=== PATIENT | female | born 1945 | race African-American/Black ===

== ENCOUNTER → 2017-03-23 | Outpatient (CLI) | payer OTHER ==
[~2017-03-23] MED LIST: DIAZ2TAB PO; HYDR-971 PO; PRED50TA PO; flexeril PO
--- NOTE | 2017-03-24 07:07 | RAD ---
Right lower extremity venous ultrasound, 03/23/2017 : History: Right thigh pain Duplex evaluation including grayscale, color flow and spectral Doppler analysis was performed. The femoral and popliteal veins show no filling defects to suggest DVT. The visualized deep veins in the right calf are unremarkable. IMPRESSION: There is no sonographic evidence of deep vein thrombosis in the right lower extremity
== END | disposition home or self-care (01) ==
LOC: DXRAD 16:34
PROVIDERS: ATTEND Nurse Practitioner Family
DX: M79.651 Pain in right thigh (principal)
CPT/HCPCS: 93971

== ENCOUNTER 2017-12-14 00:22 | Emergency (ER) | payer MEDICARE ==
[~2017-12-14] VITALS: Ht 158.8 cm; Wt 75.7 kg
--- NOTE | 2017-12-14 00:59 | PHYS DOC ---
Past History Past Medical History: Arthritis, Gallstones, Hypertension, Other Past Surgical History: Cholecystectomy, Tubal ligation, Other Smoking: Cigarettes, Less than 1pk/day Alcohol Use: None Drug Use: None Adult General Chief Complaint Chief Complaint: CHEST PAIN HPI HPI 72-year-old female presents with left-sided chest pain. The patient says that she started having chest pressure around 4:30 PM. It increased around 10:30 PM. She denies diaphoresis, but admits to some mild shortness of breath and increased pain with deep breathing. One of her colleagues at work noticed that she was rubbing her chest and told the patient's boss. The patient's boss sent her to the emergency room. Patient does not have a cardiac history. She is on medications for gout and high blood pressure. She has never had a stress test or cardiac catheter. The patient has been having some difficulty with her left shoulder hurting for the last week or 2. She has trouble with certain aspects of range of motion. She has seen her PCP for this. She denies fever, chills, nausea, vomiting, diarrhea, constipation, dysuria. Review of Systems Review of Systems Constitutional: Denies fever or chills [] Eyes: Denies change in visual acuity, redness, or eye pain [] HENT: Denies nasal congestion or sore throat [] Respiratory: Mild shortness of breath [] Cardiovascular: No additional information not addressed in HPI [] GI: Denies abdominal pain, nausea, vomiting, bloody stools or diarrhea [] : Denies dysuria or hematuria [] Musculoskeletal: Denies back pain or joint pain [] Integument: Denies rash or skin lesions [] Neurologic: Denies headache, focal weakness or sensory changes [] Endocrine: Denies polyuria or polydipsia [] All other systems were reviewed and found to be within normal limits, except as documented in this note. Current Medications Current Medications Current Medications Medications (Trade) Dose Ordered Sig/Baltazar Start Time Stop Time Status Last Admin Dose Admin Aspirin (Children'S Aspirin) 324 mg 1X ONCE 12/14/17 01:00 12/14/17 01:01 Allergies Allergies Allergies Coded Allergies Type Severity Reaction Last Updated Verified ibuprofen Allergy Intermediate Swelling 11/07/13 Yes Physical Exam Physical Exam Constitutional: Well developed, well nourished, no acute distress, non-toxic appearance. [] HENT: Normocephalic, atraumatic, bilateral external ears normal, oropharynx moist, no oral exudates, nose normal. [] Eyes: PERRLA, EOMI, proptosis, conjunctiva normal, no discharge. [] Neck: Normal range of motion, no tenderness, supple, no stridor. [] Cardiovascular:Heart rate regular rhythm, no murmur [] Lungs & Thorax: Bilateral breath sounds clear to auscultation [] Abdomen: Bowel sounds normal, soft, no tenderness, no masses, no pulsatile masses. [] Skin: Warm, dry, no erythema, no rash. [] Back: No tenderness, no CVA tenderness. [] Extremities: No tenderness, no cyanosis, no clubbing, ROM intact, no edema. [] Neurologic: Alert and oriented X 3, normal motor function, normal sensory function, no focal deficits noted. [] Psychologic: Affect normal, judgement normal, mood normal. [] EKG EKG Sinus rhythm, rate 57, leftward axis, no ST elevations or depressions.[] Radiology/Procedures Radiology/Procedures [] Impressions: AP chest. HISTORY: Chest pain AP view was taken of the chest. Lungs are clear. Heart is normal in size without heart failure. There is no pleural effusion. IMPRESSION: 1. No acute chest disease. Electronically signed by: Inder Plasencia MD (12/14/2017 1:02 AM) [facility] Course & Med Decision Making Course & Med Decision Making Pertinent Labs and Imaging studies reviewed. (See chart for details) The patient's chest x-ray is unremarkable. Her EKG is unremarkable. Her labs are unremarkable except for slightly low potassium at 3.3. Her troponin is negative. His been greater than 6 hours since the patient's chest pain began. Her negative troponin is reassuring. I reviewed all these results with the patient and she was greatly reassured. Her pain has improved. She will continue to follow-up her shoulder pain with her PCP. She will prefer to go home versus admission for observation. I advised her that if her condition worsens or her symptoms return she should return to the ED. She is stated verbal understanding. She is stable for discharge at this time. [] Dragon Disclaimer Dragon Disclaimer This electronic medical record was generated, in whole or in part, using a voice recognition dictation system. Departure Departure: Referrals: RC ANDRES MD (PCP) OFE JARVIS DO Dec 14, 2017 00:59
[2017-12-14] MEDS ORDERED: ASPIRIN 81 MG TAB.CHEW PO ONE (01:00)
--- NOTE | 2017-12-14 01:06 | RAD ---
AP chest. HISTORY: Chest pain AP view was taken of the chest. Lungs are clear. Heart is normal in size without heart failure. There is no pleural effusion. IMPRESSION: 1. No acute chest disease. Electronically signed by: Inder Plasencia MD (12/14/2017 1:02 AM) [facility]
[2017-12-14 01:08] LABS: BASO # 0.1 x10^3/uL (0.0-0.2); BASO % 1 % (0-3); EOS # 0.2 x10^3/uL (0.0-0.7); EOS % 3 % (0-3); HEMATOCRIT 35.6 % (36.0-47.0); HEMOGLOBIN 11.8 g/dL (12.0-15.5); LYMPH # 2.5 x10^3/uL (1.0-4.8); LYMPH % 40 % (24-48); MEAN CORPUSCULAR HEMOGLOBIN 31 pg (25-35); MEAN CORPUSCULAR HGB CONC 33 g/dL (31-37); MEAN CORPUSCULAR VOLUME 94 fL (79-100); MONO # 0.5 x10^3/uL (0.0-1.1); MONO % 9 % (0-9); NEUT # 3.1 x10^3uL (1.8-7.7); NEUT % 48 % (31-73); PLATELET COUNT 231 x10^3/uL (140-400); RED CELL DISTRIBUTION WIDTH 13.3 % (11.5-14.5); WHITE BLOOD COUNT 6.3 x10^3/uL (4.0-11.0)
[2017-12-14 01:20] LABS: ALBUMIN 3.6 g/dL (3.4-5.0); ALBUMIN/GLOBULIN RATIO 1.1 (1.0-1.7); CALCIUM 9.6 mg/dL (8.5-10.1); CREATININE 1.1 mg/dL (0.6-1.0); GFR 59.2; POTASSIUM 3.3 mmol/L (3.5-5.1); TOTAL BILIRUBIN 0.4 mg/dL (0.2-1.0); TOTAL PROTEIN 6.8 g/dL (6.4-8.2)
[2017-12-14 01:38] VITALS: BP 189/82
--- NOTE | 2017-12-14 15:27 | EKG ---
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
== END 2017-12-14 01:54 | disposition home or self-care (01) ==
LOC: ER 00:22
DX: R07.89 Other chest pain (principal); M25.512 Pain in left shoulder; M19.90 Unspecified osteoarthritis, unspecified site; I10 Essential (primary) hypertension; F17.210 Nicotine dependence, cigarettes, uncomplicated; Z88.0 Allergy status to penicillin
CPT/HCPCS: 36415; 71045; 80053; 84484; 85025; 93005; 99285-25

== ENCOUNTER → 2019-05-12 | Outpatient (CLI) | payer MEDICARE ==
[~2019-05-12] MED LIST changes: +HYDR-3165 PO; -HYDR-971 PO
--- NOTE | 2019-05-12 12:31 | RAD ---
Examination: Lower Extremity Venous Doppler Ultrasound History: Right lower extremity swelling Comparison: 03/23/2017 Procedure: Velazquez scale, color flow 2D and spectal waveform analysis images are obtained with and without compression in the area of the common femoral vein, superficial femoral vein - femoral vein junction, main femoral vein (superficial femoral vein) and popliteal vein. Veins of the proximal calf are also imaged. Findings: There is normal duplex flow, color flow and compressibility of all visualized vein segments. No evidence of deep venous thrombus is present. Impression: No evidence of DVT in the right lower extremity venous system. Electronically signed by: Cecil Espana MD (05/12/2019 12:28 PM) [facility]
[2019-05-12 12:47] LABS: BASO % 0 % (0-3); EOS # 0.1 x10^3/uL (0.0-0.7); EOS % 1 % (0-3); HEMATOCRIT 27.1 % (36.0-47.0); HEMOGLOBIN 8.7 g/dL (12.0-15.5); LYMPH % 14 % (24-48); MEAN CORPUSCULAR HEMOGLOBIN 29 pg (25-35); MEAN CORPUSCULAR HGB CONC 32 g/dL (31-37); MEAN CORPUSCULAR VOLUME 92 fL (79-100); MONO # 0.6 x10^3/uL (0.0-1.1); MONO % 4 % (0-9); NEUT % 80 % (31-73); PLATELET COUNT 513 x10^3/uL (140-400); RED BLOOD COUNT 2.95 x10^6/uL (3.50-5.40); RED CELL DISTRIBUTION WIDTH 16.7 % (11.5-14.5); WHITE BLOOD COUNT 13.7 x10^3/uL (4.0-11.0)
[2019-05-12 13:04] LABS: CALCIUM 9.1 mg/dL (8.5-10.1); CREATININE 0.9 mg/dL (0.6-1.0); GFR 74.3; POTASSIUM 3.8 mmol/L (3.5-5.1)
== END | disposition home or self-care (01) ==
LOC: LAB 11:33
PROVIDERS: ATTEND Nurse Practitioner Adult Health
DX: J81.1 Chronic pulmonary edema (principal); R22.41 Localized swelling, mass and lump, right lower limb; R07.1 Chest pain on breathing
CPT/HCPCS: 36415; 80048; 82550; 83880; 84484; 85025; 85379; 93971

== ENCOUNTER → 2019-06-22 | Outpatient (CLI) | payer MEDICARE ==
--- NOTE | 2019-06-22 14:09 | RAD ---
EXAM: 1. BILATERAL 3-D DIGITAL DIAGNOSTIC MAMMOGRAPHY. 2. RIGHT BREAST ULTRASOUND. HISTORY: Palpable focus right breast. TECHNIQUE: Bilateral full field digital images were obtained in CC and MLO projections with tomosynthesis. Computer-aided detection was applied. COMPARISON: 10/01/2016. COMPOSITION: D. The breasts are extremely dense, which lowers the sensitivity of mammography. FINDINGS: A new lobulated mass in the right axillary tail measures 2.3 x 1.7 cm mammographically. On today's sonography, this corresponds with a hypoechoic, solid lobulated mass at the 10:30 position 14 cm from the nipple. There is internal perfusion. This is consistent with malignancy. Images of the right axilla reveal subcentimeter lymph nodes without definitively thickened cortices. Elsewhere, scattered and vascular calcifications appear benign. There is no suspicious finding on the left. BI-RADS CATEGORY 5: Highly Suggestive of Malignancy--Appropriate action should be taken. RECOMMENDATION: 1. Ultrasound-guided biopsy of the right breast mass at the 10:30 position. Electronically signed by: Stephan Zarco MD (06/22/2019 2:06 PM) [id number]
== END | disposition home or self-care (01) ==
LOC: MAMMO 12:17
PROVIDERS: ATTEND Family Medicine
DX: N63.11 Unspecified lump in the right breast, upper outer quadrant (principal); R92.1 Mammographic calcification found on diagnostic imaging of breast
CPT/HCPCS: 76641; 77066; G0279; 77062

== ENCOUNTER 2020-08-23 14:09 | Inpatient (IN) | payer MEDICARE ==
[~2020-08-23] VITALS: Ht 154.9 cm; Wt 66.2 kg
--- NOTE | 2020-08-23 14:28 | PHYS DOC ---
Past History Past Medical History: Arthritis, Gallstones, Hypertension, Other Past Surgical History: Cholecystectomy, Tubal ligation, Other Smoking: Cigarettes, Less than 1pk/day Alcohol Use: None Drug Use: None Adult General Chief Complaint Chief Complaint: WEAKNESS/GENERALIZED HPI HPI Patient is a 75-year-old female presenting via EMS for weakness. Patient reports onset was approximately 2 hours ago. 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 States she has had no significant change in baseline health recently, only change was an increase of her Entresto medication approximately 2 weeks ago. She has been taking all medications as scheduled, no compliance issues. Reports eating lunch with her daughter this afternoon and cannot remember much afterwards. She has had no falls. Daughter notified our ER that patient was acting more confused, states that patient went into study and used study chair as bathroom thinking she was on the commode which is unusual for her, there was no trauma or other concerning inciting events or mechanisms of injury. No fever, recent sick contacts, she is up-to-date on x2 [employer] Review of Systems Review of Systems Fourteen body systems of review of systems have been reviewed. See HPI for pertinent positives and negative responses, other leary all other systems are negative, non-pertinent or non-contributory Allergies Allergies Allergies Coded Allergies Type Severity Reaction Last Updated Verified ibuprofen Allergy Intermediate Swelling 11/07/13 Yes Physical Exam Physical Exam Constitutional: Well developed, appears thin, weak but nontoxic appearing HENT: Normocephalic, atraumatic, bilateral external ears normal, oropharynx moist, no oral exudates, nose normal. Eyes: PERRLA, EOMI, conjunctiva normal, no discharge. Right exotropia Neck: Normal range of motion, no tenderness, supple, no stridor. Cardiovascular: Heart rate regular, sinus rhythm, right breast larger than left Lungs & Thorax: Bilateral breath sounds clear to auscultation Abdomen: Bowel sounds normal, soft, no tenderness, no masses, no pulsatile masses. Nonsurgical abdomen, no peritoneal signs Skin: Warm, dry, no erythema, no rash. Back: No tenderness, no CVA tenderness. Extremities: No tenderness, no cyanosis, no clubbing, ROM intact, no edema. Neurologic: Alert and oriented X 3, cranial nerves II through XII intact, normal motor & sensory function, no focal deficits noted. Unsteady gait, is weak when trying to transfer from EMS gurney to ER bed and requires assistance Psychologic: Affect normal, judgement normal, mood normal. Current Patient Data Vital Signs Vital Signs Date Time Temp Pulse Resp B/P (MAP) Pulse Ox O2 Delivery O2 Flow Rate FiO2 08/23/20 14:09 97.5 53 16 102/61 (75) 99 Room Air Vital Signs Date Time Temp Pulse Resp B/P (MAP) Pulse Ox O2 Delivery O2 Flow Rate FiO2 08/23/20 14:09 97.5 53 16 102/61 (75) 99 Room Air EKG EKG EKG ordered and interpreted by myself at 1421 hrs. as sinus rhythm at 62 bpm, unremarkable intervals, left axis deviation, T wave inversions noted to leads V3, V4, V5 and V6, no STEMI Radiology/Procedures Radiology/Procedures CT Head W/O Contrast: History: Reason: altered mental status, hx breast cancer / Spl. Instructions: / History: Comparison: none Axial images were obtained without contrast. There is moderate diffuse atrophy. There is no mass effect, extraaxial fluid collections or hydrocephalus. There is no focal loss of canseco-white matter distinction to suggest acute ischemia, i.e. stroke. Impression: No acute findings. //////////////////////// Heart Score C/O Chest Pain: No HEART Score for Chest Pain: HEART Score for Chest Pain Response (Comments) Value History Slighlty/Non-Suspicious 0 ECG Normal 0 Age > 65 2 Risk Factors >3 Risk Factors or Hx CAD 2 Troponin < Normal Limit 0 Total 4 Risk Factors: Risk Factors: DM, Current or recent (<one month) smoker, HTN, HLP, family his tory of CAD, obesity. Risk Scores: Risk Factors: DM, Current or recent (<one month) smoker, HTN, HLP, family history of CAD, obesity. Course & Med Decision Making Course & Med Decision Making Hypotensive patient with otherwise unremarkable history and physical exam Diagnostic ER work-up concerning for anemia that appears stable, leukopenia that is likely due to patient's immunocompromised status, and most significantly an RICHARD Gentle IV fluid rehydration with 500 mils normal saline administered with improvement in patient's blood pressure. Discussed ER case and need for admiss ion given significant RICHARD and need for continued fluid rehydration and high risk individual given history of HFrEF I contacted patient's PCP who also serves as hospitalist who agreed need for hospital admission for continued inpatient medical management. No indication for urgent nephrology consultation at present History I updated patient and son at bedside on proposed plan of care that included admission, they were amenable to plan as stated. Patient with full capacity confirms she is full CODE STATUS prior to hospital admission Critical Care Time This patient required critical care. Due to the fact that the patient required a significant amount of one on one physician - patient contact time, ordering and review of studies, arranging urgent treatment with development of a management plan, evaluation of patients response to treatment with frequent reassessments, and discussions with other providers this patient required 40 minutes of critical care time. Critical care time was indicated due to the inherent instability and/or potential for instability in this patient. The critical care time that is allocated to this patient is above and beyond any time spent on any other billable procedures performed on this patient. Dragon Disclaimer Dragon Disclaimer This electronic medical record was generated, in whole or in part, using a voice recognition dictation system. Departure Departure: Impression: Primary Impression: RICHARD (acute kidney injury) Additional Impressions: Hypotension HFrEF (heart failure with reduced ejection fraction) Disposition: 09 ADMITTED INPT THIS HOSP Admitting Physician: Rc Saldivar Condition: STABLE Referrals: RC SALDIVAR MD (PCP) Problem Qualifiers CHANDANCURRY Aug 23, 2020 14:28
--- NOTE | 2020-08-23 14:44 | EKG ---
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
[2020-08-23] MEDS ORDERED: IV NORMAL SALINE 500ML 500 ML IV ONE (14:45)
[2020-08-23 14:47] LABS: BASO % 1 % (0-3); EOS # 0.3 x10^3/uL (0.0-0.7); EOS % 10 % (0-3); HEMATOCRIT 27.3 % (36.0-47.0); HEMOGLOBIN 8.8 g/dL (12.0-15.5); LYMPH # 0.4 x10^3/uL (1.0-4.8); LYMPH % 13 % (24-48); MEAN CORPUSCULAR HEMOGLOBIN 32 pg (25-35); MEAN CORPUSCULAR HGB CONC 32 g/dL (31-37); MEAN CORPUSCULAR VOLUME 100 fL (79-100); MONO # 0.4 x10^3/uL (0.0-1.1); MONO % 13 % (0-9); NEUT % 63 % (31-73); PLATELET COUNT 140 x10^3/uL (140-400); RED BLOOD COUNT 2.74 x10^6/uL (3.50-5.40); RED CELL DISTRIBUTION WIDTH 13.6 % (11.5-14.5); WHITE BLOOD COUNT 3.2 x10^3/uL (4.0-11.0)
--- NOTE | 2020-08-23 15:02 | RAD ---
CT Head W/O Contrast: History: Reason: altered mental status, hx breast cancer / Spl. Instructions: / History: Comparison: none Axial images were obtained without contrast. There is moderate diffuse atrophy. There is no mass effect, extraaxial fluid collections or hydrocep halus. There is no focal loss of canseco-white matter distinction to suggest acute ischemia, i.e. stroke. Impression: No acute findings. PQRS Compliance Statement: One or more of the following individualized dose reduction techniques were utilized for this examinat ion: 1. Automated exposure control 2. Adjustment of the mA and/or kV according to patient size 3. Use of iterative reconstruction technique Electronically signed by: Simeon Garcia III, MD (08/23/2020 3:00 PM) [facility]
[2020-08-23 15:04] LABS: CALCIUM 9.2 mg/dL (8.5-10.1); CREATININE 2.5 mg/dL (0.6-1.0); GFR 22.8; POTASSIUM 4.4 mmol/L (3.5-5.1)
--- NOTE | 2020-08-23 15:29 | RAD ---
AP chest. HISTORY: Weakness, hypotension AP view was taken of the chest. Lungs are free of infiltrates. There are possible pulmonary nodules o n the left. CT may be of benefit. Heart is normal in size. There is no pleural effusion. IMPRESSION: 1. Left pulmonary nodule CT may be of benefit. 2. No acute infiltrates. Electronically signed by: Inder Plasencia MD (08/23/2020 3:26 PM) [id number]
[2020-08-23] MEDS ORDERED: ACETAMINOPHEN 325 MG TABLET PO PRN (15:45)
--- NOTE | 2020-08-23 16:37 | NUR ---
PT ARRIVED TO UNIT VIA AMBULATION. PT IS STABLE AT TIME OF ADMISSION. PT IS OFFERED FOOD AND DRINK AND MEAL TRAY ORDERED FOR PT. PT IS ORIENTED TO UNIT AND STAFF. PT IS RESTING IN BED AT THIS TIME WILL CONTINUE TO MONITOR.
[2020-08-23 16:58] VITALS: BP 103/67
[2020-08-23] MEDS ORDERED: diazePAM 2 MG TABLET. PO PRN (17:30)
[2020-08-23] MEDS ORDERED: HYDROcodone/APAP 5/325MG 1 TAB TABLET PO PRN (17:30)
[2020-08-23] MEDS ORDERED: CYCLOBENZAPRINE 10 MG TABLET. PO PRN (17:45)
--- NOTE | 2020-08-23 18:07 | HP ---
ADMIT DATE: 08/23/2020 HISTORY OF PRESENT ILLNESS: A 75-year-old female who was brought in through the EMS with generalized weakness and hypotension with blood pressures down in the 80s and low 90s, unable to stand up without feeling like she was going to fall over. The patient had been up-to-date and usually doing fairly well until just recently. The patient has multiple problems including history of congestive heart failure and breast cancer. She has had a heart failure, reduced ejection fraction from the chemotherapy itself. The patient denied any chest pain, shortness of breath at the present time, although generalized weakness and has some memory, confusion, then normally noted by this patient, which is an acute onset there. The patient otherwise as noted had a blood pressure as noted originally in the 80s and 90s and given fluids and brought back up into a reasonable range. PHYSICAL EXAMINATION: GENERAL: This is a pleasant female, feeling weak and tired. VITAL SIGNS: The patient's blood pressure presently is 103/67, respiratory rate 20, pulse 67, afebrile, oxygen saturation 98%. HEENT: The patient's head was atraumatic, normocephalic. Eyes: PERRLA without jaundice. The mouth and throat were normal. NECK: Supple. LUNGS: Diminished. Poor movement of air. CARDIOVASCULAR: Regular sinus rhythm, S1, S2. A 1-2/6 systolic ejection murmur. ABDOMEN: The patient's abdomen is soft, protuberant, nontender. No rebounding or guarding. EXTREMITIES: No clubbing, cyanosis, nor edema. NEUROLOGIC: The patient was alert, but slightly confused, although she had good cranial nerve function there. Neurologically, otherwise intact. The patient's imaging showed a head CT, which was noncontributory with no acute findings as well as her chest x-ray showing some left pleural nodule, but no acute infiltrates were noted. PAST MEDICAL HISTORY: Right breast mass noted in 04/2019, bilateral diagnostic mammography. The patient has undergone right breast ultrasound at . The patient has had biopsy of the right breast. She has had radiation 4 cycles of 20% dose reduction, requiring transfusions. The patient had anemia and lumpectomy in 01/2020. IDC grade 3 with LVS1 8 cm. Echo on 03/06/2020 showed 55% ejection fraction. However, post-chemotherapy showed ejection fraction of only 25%. Other past medical history is hypertension, arthritis and injury to her shoulder. ALLERGIES: IBUPROFEN AND LIPITOR. PAST SURGICAL HISTORY: Include back surgery, D and C, bilateral great toe removal, left shoulder surgery as noted. MEDICATIONS: Include Tramadol, Ambien for sleep, hydrocodone, furosemide, in the past Uloric for gout, Cozaar, hydrochlorothiazide and carvedilol 6.25 b.i.d. IMPRESSION: Hypotension, change in mental status, possible encephalopathy. PLAN: The patient will be admitted. She will be gradually hydrated, but not to send her into heart failure and make further evaluation on her as indicated. RC ANDRES MD DR: JAVIER/mirta JOB#: [id number] / [id number]
[2020-08-23] MEDS ORDERED: SACU1TAB4 PO (18:10)
[2020-08-23] MEDS ORDERED: CARV12.5 PO (18:10)
[2020-08-23] MEDS ORDERED: POTA20TA4 PO (18:10)
[2020-08-23] MEDS ORDERED: SPIR25TA5 PO (18:10)
[2020-08-23] MEDS ORDERED: ASPI-630 PO (18:10)
[2020-08-23 20:09] VITALS: BP 101/61
[2020-08-23] MEDS: IV NORMAL SALINE 1,000ML 1,000 ML IV SCH (20:21)
[2020-08-23 23:46] VITALS: BP 87/50
[2020-08-24 00:07] VITALS: BP 98/61
[2020-08-24] MEDS: IV NORMAL SALINE 1,000ML 1,000 ML IV SCH (04:52)
[2020-08-24 05:27] VITALS: BP 129/69
[2020-08-24 06:52] LABS: BASO % 1 % (0-3); EOS # 0.4 x10^3/uL (0.0-0.7); EOS % 10 % (0-3); HEMOGLOBIN 8.4 g/dL (12.0-15.5); LYMPH # 0.7 x10^3/uL (1.0-4.8); LYMPH % 19 % (24-48); MEAN CORPUSCULAR HEMOGLOBIN 32 pg (25-35); MEAN CORPUSCULAR HGB CONC 32 g/dL (31-37); MEAN CORPUSCULAR VOLUME 100 fL (79-100); MONO # 0.7 x10^3/uL (0.0-1.1); MONO % 18 % (0-9); NEUT # 1.9 x10^3uL (1.8-7.7); NEUT % 52 % (31-73); PLATELET COUNT 125 x10^3/uL (140-400); RED BLOOD COUNT 2.61 x10^6/uL (3.50-5.40); RED CELL DISTRIBUTION WIDTH 13.6 % (11.5-14.5); WHITE BLOOD COUNT 3.6 x10^3/uL (4.0-11.0)
[2020-08-24 07:03] LABS: CALCIUM 8.3 mg/dL (8.5-10.1); CREATININE 1.7 mg/dL (0.6-1.0); GFR 35.5; POTASSIUM 4.6 mmol/L (3.5-5.1)
[2020-08-24 08:22] LABS: % EOS 9 % (0-5); % LYMPHS 24 % (24-48); % MONOS 20 % (0-10); % SEGS 47 % (35-66)
[2020-08-24 08:23] LABS: PLT ESTIMATE DECREASED (ADEQUATE)
[2020-08-24] MEDS ORDERED: predniSONE 10 MG TABLET PO SCH (09:00)
[2020-08-24 11:20] VITALS: BP 106/63
[2020-08-24 11:48] VITALS: BP_SYST 118; BP_SYST 97; BP_DIAS 64; BP_DIAS 65
[2020-08-24 11:54] VITALS: BP 129/66
[2020-08-24] MEDS ORDERED: DIAZ2TAB3 PO (12:09)
[2020-08-24] MEDS ORDERED: HYDR-2155 PO (12:09)
--- NOTE | 2020-08-24 13:00 | NUR ---
PT WAS PICKED UP BY HER FRIEND. IV'S WERE D/C AT THIS TIME. PT IS STABLE AND VITAL SIGNS ARE STABLE. PT STATES SHE IS FEELING MUCH BETTER. PT SIGNED HER DISCHARGE PAPERWORK AND WAS D/C FROM THE HOSPITAL.
[2020-08-24] MEDS ORDERED: CARVEDILOL 12.5 MG TABLET PO SCH (17:00)
[2020-08-25] MEDS ORDERED: ASPIRIN CHEWABLE 81 MG TABLET. PO SCH (09:00)
[2020-08-25] MEDS ORDERED: SPIRONOLACTONE 25 MG TABLET PO SCH (09:00)
[2020-08-25] MEDS ORDERED: POTASSIUM CHLORIDE 20 MEQ TABLET.ER. PO SCH (09:00)
== END 2020-08-24 12:00 | disposition home health service (06) | DRG 314 ==
LOC: ER 14:09 → 1 SOUTH 15:33 → ER 16:25
PROVIDERS: ADMIT Family Medicine; ATTEND Family Medicine
DX: I95.9 Hypotension, unspecified (principal); N17.0 Acute kidney failure with tubular necrosis; G93.41 Metabolic encephalopathy; I50.22 Chronic systolic (congestive) heart failure; E11.9 Type 2 diabetes mellitus without complications; E78.5 Hyperlipidemia, unspecified; I11.0 Hypertensive heart disease with heart failure; I25.10 Atherosclerotic heart disease of native coronary artery without angina pectoris; Z82.49 Family history of ischemic heart disease and other diseases of the circulatory system; Z85.3 Personal history of malignant neoplasm of breast; Z87.891 Personal history of nicotine dependence; M19.90 Unspecified osteoarthritis, unspecified site; Z90.49 Acquired absence of other specified parts of digestive tract; Z88.8 Allergy status to other drugs, medicaments and biological substances; Z79.899 Other long term (current) drug therapy; D64.9 Anemia, unspecified
CPT/HCPCS: 36415; 70450; 71045; 80048; 83605; 83880; 84484; 85007; 85025; 87040; 93005; J7512; 99291-25; J7030

== ENCOUNTER 2021-02-11 09:23 | Inpatient (IN) | payer MEDICARE ==
[~2021-02-11] VITALS: Ht 154.9 cm; Wt 59.8 kg
[~2021-02-11 09:23] MED LIST changes: +ASPI-630 PO; +CARV12.5 PO; +DIAZ2TAB3 PO; +HYDR-2155 PO; +POTA-121 PO; +SACU1TAB4 PO; +SPIR25TA5 PO
--- NOTE | 2021-02-11 09:49 | PHYS DOC ---
Past History Past Medical History: Arthritis, Cancer, Gallstones, Hypertension, Pneumonia, Other Past Surgical History: Cholecystectomy, Tubal ligation, Other Additional Past Surgical Histo: back surgery Smoking: Cigarettes, Less than 1pk/day Alcohol Use: None Drug Use: None General Adult EDM: Chief Complaint: DIZZY/LIGHT HEADED HPI: HPI: 76-year-old female presents the emergency department complaining of dizziness that occurred around 7:30 AM this morning when she was getting her great grandchild ready for school. She reports getting up from a seated position, feeling lightheaded for approximately 1 hour, and then her symptoms spontaneously resolving. She denies any focal weakness, chest pain, shortness of breath, palpitations, episodes of passing out. She has a recent history of breast cancer in remission. She currently denies any symptoms and states that she feels much better. Her primary doctor recently increased her carvedilol dosage to 12.5 mg twice daily 2 days ago. The patient denies nausea, vomiting, fever, chills, chest pain, shortness of breath, abdominal pain, urinary symptoms, cough, recent trauma, or any other complaints. Review of Systems: Review of Systems: Constitutional: Denies fever or chills. Eyes: Denies change in vision, pain. HENT: Denies congestion or sore throat. Respiratory: Denies cough or shortness of breath. Cardiovascular: Denies chest pain or edema. GI: Denies abdominal pain, nausea. : Denies change in urination, dysuria. Musculoskeletal: Denies extremity pain, or trauma. Skin: Denies rash, skin change. Neurologic: Denies headache, focal weakness. Psychiatric: Denies depression or anxiety. All other systems reviewed as negative except for what was mentioned in the HPI. Family History: Family History: Noncontributory Allergies: Allergies: Allergies Coded Allergies Type Severity Reaction Last Updated Verified ibuprofen Allergy Intermediate Swelling 02/11/21 Yes Physical Exam: PE: Constitutional: No acute distress, non-toxic appearance. HENT: Atraumatic, bilateral external ears normal, nose normal. Eyes: Conjunctiva normal, no discharge. Neck: Normal range of motion, supple, no stridor. Cardiovascular: Heart rate regular rhythm. 2+ radial pulses and equal Lungs & Thorax: No respiratory distress, symmetrical expansion. Bilateral breath sounds clear to auscultation Chest wall: No reproducible chest wall tenderness to palpation, no lesions. Abdomen: Soft, no tenderness Skin: Warm, dry. Extremities: No tenderness, no cyanosis, ROM intact, no edema. Neurologic: Alert and oriented X 3, normal motor function, normal sensory function, no focal deficits noted. GCS 15. Psychologic: Affect normal, judgment normal, mood normal. Current Patient Data: Labs: Laboratory Tests Test 02/11/21 09:59 White Blood Count 4.4 x10^3/uL (4.0-11.0) Red Blood Count 3.82 x10^6/uL (3.50-5.40) Hemoglobin 11.6 g/dL (12.0-15.5) L Hematocrit 36.0 % (36.0-47.0) Mean Corpuscular Volume 94 fL (79-100) Mean Corpuscular Hemoglobin 31 pg (25-35) Mean Corpuscular Hemoglobin Concent 32 g/dL (31-37) Red Cell Distribution Width 13.8 % (11.5-14.5) Platelet Count 204 x10^3/uL (140-400) Neutrophils (%) (Auto) 77 % (31-73) H Lymphocytes (%) (Auto) 13 % (24-48) L Monocytes (%) (Auto) 8 % (0-9) Eosinophils (%) (Auto) 1 % (0-3) Basophils (%) (Auto) 1 % (0-3) Neutrophils # (Auto) 3.4 x10^3uL (1.8-7.7) Lymphocytes # (Auto) 0.6 x10^3/uL (1.0-4.8) L Monocytes # (Auto) 0.4 x10^3/uL (0.0-1.1) Eosinophils # (Auto) 0.0 x10^3/uL (0.0-0.7) Basophils # (Auto) 0.0 x10^3/uL (0.0-0.2) Sodium Level 140 mmol/L (136-145) Potassium Level 4.6 mmol/L (3.5-5.1) Chloride Level 104 mmol/L (98-107) Carbon Dioxide Level 25 mmol/L (21-32) Anion Gap 11 (6-14) Blood Urea Nitrogen 17 mg/dL (7-20) Creatinine 1.1 mg/dL (0.6-1.0) H Estimated GFR (Cockcroft-Gault) 58.6 Glucose Level 97 mg/dL (70-99) Calcium Level 9.0 mg/dL (8.5-10.1) Troponin I Quantitative 0.026 ng/mL (0-0.055) XS-Fgf-T-Type Natriuretic Peptide 2451 pg/mL (0-449) H Vital Signs: Vital Signs Date Time Temp Pulse Resp B/P (MAP) Pulse Ox O2 Delivery O2 Flow Rate FiO2 02/11/21 09:38 97.7 86 14 146/75 (98) 97 Room Air EKG: EKG: Time read: 9:40 AM Sinus rhythm with bigeminy rate of 83, no ST-T wave changes, normal axis, normal [place], QRS, and QTc intervals. Impression: No acute ischemic change. Compared to previous 08/23/2020, bigeminy is new. Interpreted by meAdry D.O. Radiology/Procedures: Radiology/Procedures: CTA OF THE CHEST WITH AND WITHOUT CONTRAST Clinical indications: Dizziness. Multiple bilateral nodular lung infiltrates seen on chest x-ray today. Technique: Noncontrast axial localizer was performed. After IV infusion of 60 cc of Omnipaque 350, helical CT scanning of the chest was performed using the CTA pulmonary embolism protocol. Coronal and sagittal MIP reconstructions were generated. PQRS compliance Statement One or more of the following individualized dose reduction techniques were utilized for this study: 1. Automated exposure control 2. Adjustment of the mA and/or kV according to patient size 3. Use of iterative reconstruction technique Comparison: No previous chest CT available. Findings: No axillary lymphadenopathy is evident. Mediastinal lymphadenopathy is seen. There is a large subcarinal lymph node measuring 5.7 cm transversely. Bilateral hilar lymphadenopathy is seen. On left side, the largest lymph node measures 29 mm. On the right side, the largest lymph node measures 33 mm. There is encasement of vessels here. In addition, there is mild narrowing of the distal bronchus intermedius. No pulmonary emboli are evident. No focal aneurysmal dilatation or dissection of the thoracic aorta is seen. Calcified atheromatous disease of the coronary arteries is seen. The heart size is normal. No pericardial effusion is seen. Multiple bilateral lung masses are seen. The largest on the left side is seen within the anterior left lower lobe measuring 41 mm. Largest on the right side is is pleural-based within the posterior aspect of the superior segment of the right lower lobe measuring 42 mm. Lung mass is involve all 5 lobes. No pleural effusion or pneumothorax is seen. No adrenal mass is seen. No lytic process is seen. IMPRESSION: Multiple bilateral lung masses consistent with metastatic disease. No pulmonary embolism. Calcified atheromatous disease of the coronary arteries. Electronically signed by: Isma Burgos MD (02/11/2021 12:33 PM) PROCEDURE: PORTABLE CHEST 1V EXAM: Chest, single view. HISTORY: Dizziness. COMPARISON: 08/23/2020 FINDINGS: A frontal view of the chest is obtained. There are multiple nodular opacities scattered throughout both lungs, the largest of which measures 4.2 cm involving the left lower thorax. There is no pleural effusion or pneumothorax. There is a stable cardiac silhouette. There are right axillary clips. IMPRESSION: Multiple bilateral pulmonary nodular opacities. The imaging appearan ce is concerning for metastatic disease rather than nodular infiltrate. This can be better characterized with a CT. Electronically signed by: Jenna Maxwell MD (02/11/2021 10:32 AM) Heart Score: C/O Chest Pain: No Course & Med Decision Making: Course & Med Decision Making The patient's work-up today is significant for newly found metastatic lesions in both lungs that were confirmed on CT angiogram of the chest. There is no primary lesion that was obviously seen. Upon repeat exam and history, the patient does admit that her right nipple has been inverted, and the right breast has been weeping for several months. She has a palpable lymph node in her infraclavicular area on the left. She stopped her chemotherapy and radiation therapy in August of this year. My concern is that her breast cancer has returned and now metastasized to her lungs. She will likely need oncological care as well as further treatment in the hospital. I discussed the case with Dr. Andres who will admit the patient to the hospital for observation. Her presentation for dizziness today is likely compounded by her stopping her carvedilol and then increasing of the dose to 12.5 mg 2 days ago. Departure Departure: Impression: Primary Impression: Multiple lesions of metastatic malignancy Additional Impression: Dizziness Disposition: 09 ADMITTED INPATIENT Admitting Physician: Jono Andres Condition: STABLE Referrals: JONO ANDRES MD (PCP) ADRY DISLA DO Feb 11, 2021 09:49
--- NOTE | 2021-02-11 09:51 | EKG ---
[address] [address] Test Date: 2021-02-11 Test Time: 09:43:14 Pat Name: ANNAMARIA MARS Department: Room: Gender: F [employer] Principal: EVE : 1945 Requested By: ADRY DISLA Order Number: [id number] Reading MD: Measurements Intervals [place] Rate: 83 P: 59 IA: 190 QRS: 50 QRSD: 92 T: -20 QT: 446 QTc: 525 Interpretive Statements SINUS RHYTHM ATRIAL PREMATURE COMPLEX(ES), BIGEMINY INCOMPLETE RIGHT BUNDLE BRANCH BLOCK PROLONGED QT ABNORMAL ECG RI6.02 No previous ECG available for comparison
[2021-02-11 10:26] LABS: BASO % 1 % (0-3); EOS % 1 % (0-3); HEMOGLOBIN 11.6 g/dL (12.0-15.5); LYMPH # 0.6 x10^3/uL (1.0-4.8); LYMPH % 13 % (24-48); MEAN CORPUSCULAR HEMOGLOBIN 31 pg (25-35); MEAN CORPUSCULAR HGB CONC 32 g/dL (31-37); MEAN CORPUSCULAR VOLUME 94 fL (79-100); MONO # 0.4 x10^3/uL (0.0-1.1); MONO % 8 % (0-9); NEUT # 3.4 x10^3uL (1.8-7.7); NEUT % 77 % (31-73); PLATELET COUNT 204 x10^3/uL (140-400); RED BLOOD COUNT 3.82 x10^6/uL (3.50-5.40); RED CELL DISTRIBUTION WIDTH 13.8 % (11.5-14.5); WHITE BLOOD COUNT 4.4 x10^3/uL (4.0-11.0)
[2021-02-11 10:28] LABS: CREATININE 1.1 mg/dL (0.6-1.0); GFR 58.6; POTASSIUM 4.6 mmol/L (3.5-5.1)
--- NOTE | 2021-02-11 10:35 | RAD ---
EXAM: Chest, single view. HISTORY: Dizziness. COMPARISON: 08/23/2020 FINDINGS: A frontal view of the chest is obtained. There are multiple nodular opacities scattered thr oughout both lungs, the largest of which measures 4.2 cm involving the left lower thorax. There is no pleural effusion or pneumothorax. There is a stable cardiac silhouette. There are right axillary cli ps. IMPRESSION: Multiple bilateral pulmonary nodular opacities. The imaging appearance is concerning for metastatic disease rather than nodular infiltrate. This can be better characterized with a CT. Electronically signed by: Jenna Maxwell MD (02/11/2021 10:32 AM) [facility]
[2021-02-11] MEDS ORDERED: IOHEXOL 350 MG/ML 100 ML VIAL. IV ONE (11:45)
--- NOTE | 2021-02-11 12:36 | RAD ---
CTA OF THE CHEST WITH AND WITHOUT CONTRAST Clinical indications: Dizziness. Multiple bilateral nodular lung infiltrates seen on chest x-ray catherine y. Technique: Noncontrast axial localizer was performed. After IV infusion of 60 cc of Omnipaque 350, he lical CT scanning of the chest was performed using the CTA pulmonary embolism protocol. Coronal and s agittal MIP reconstructions were generated. PQRS compliance Statement One or more of the following individualized dose reduction techniques were utilized for this study: 1. Automated exposure control 2. Adjustment of the mA and/or kV according to patient size 3. Use of iterative reconstruction technique Comparison: No previous chest CT available. Findings: No axillary lymphadenopathy is evident. Mediastinal lymphadenopathy is seen. There is a lar ge subcarinal lymph node measuring 5.7 cm transversely. Bilateral hilar lymphadenopathy is seen. On l eft side, the largest lymph node measures 29 mm. On the right side, the largest lymph node measures 3 3 mm. There is encasement of vessels here. In addition, there is mild narrowing of the distal bronchu s intermedius. No pulmonary emboli are evident. No focal aneurysmal dilatation or dissection of the t horacic aorta is seen. Calcified atheromatous disease of the coronary arteries is seen. The heart siz e is normal. No pericardial effusion is seen. Multiple bilateral lung masses are seen. The largest on the left side is seen within the anterior left lower lobe measuring 41 mm. Largest on the right side is is pleural-based within the posterior aspect of the superior segment of the right lower lobe ramon uring 42 mm. Lung mass is involve all 5 lobes. No pleural effusion or pneumothorax is seen. No adrena l mass is seen. No lytic process is seen. IMPRESSION: Multiple bilateral lung masses consistent with metastatic disease. No pulmonary embolism. Calcified atheromatous disease of the coronary arteries. Electronically signed by: Isma Burgos MD (02/11/2021 12:33 PM) [id number]
[2021-02-11] MEDS ORDERED: ONDANSETRON PF 4 MG/2 ML VIAL. IVP PRN (13:30)
[2021-02-11] MEDS ORDERED: ACETAMINOPHEN 325 MG TABLET PO PRN (13:30)
[2021-02-11 14:20] LABS: BACTERIA,URINE 0 /HPF (0-FEW); BILIRUBIN,URINE NEG (NEG); CLARITY,URINE CLEAR; COLOR,URINE YELLOW; GLUCOSE,URINE NEG (NEG); NITRITE,URINE NEG (NEG); RBC,URINE OCC /HPF (0-2); SQUAMOUS EPITHELIAL CELL,UR FEW /LPF; WBC,URINE OCC /HPF (0-4)
--- NOTE | 2021-02-11 14:27 | EKG ---
[address] [address] Test Date: 2021-02-11 Test Time: 14:17:33 Pat Name: ANNAMARIA MARS Department: Room: Gender: F [employer]: : 1945 Requested By: ADRY DISLA Order Number: [id number] Reading MD: Measurements Intervals [place] Rate: 83 P: 59 FL: 202 QRS: 59 QRSD: 82 T: 20 QT: 448 QTc: 527 Interpretive Statements SINUS RHYTHM ATRIAL PREMATURE COMPLEX(ES), BIGEMINY PROLONGED QT ABNORMAL ECG RI6.02 No previous ECG available for comparison
[2021-02-12] VITALS: BP 145/66
--- NOTE | 2021-02-12 00:54 | NUR ---
The patient, ANNAMARIA MARS, 76 y/o, F admitted by , was given written information regarding hospital policies, unit procedures and contact persons. Valuables were checked and .V/S
[2021-02-12] MEDS ORDERED: CRESTOR10 MG PO (00:58)
[2021-02-12] MEDS ORDERED: FURO40TA4 PO (01:01)
[2021-02-12 06:51] LABS: BASO % 1 % (0-3); EOS % 1 % (0-3); HEMATOCRIT 35.4 % (36.0-47.0); HEMOGLOBIN 11.3 g/dL (12.0-15.5); LYMPH # 0.6 x10^3/uL (1.0-4.8); LYMPH % 16 % (24-48); MEAN CORPUSCULAR HEMOGLOBIN 30 pg (25-35); MEAN CORPUSCULAR HGB CONC 32 g/dL (31-37); MEAN CORPUSCULAR VOLUME 94 fL (79-100); MONO # 0.4 x10^3/uL (0.0-1.1); MONO % 12 % (0-9); NEUT # 2.5 x10^3uL (1.8-7.7); NEUT % 70 % (31-73); PLATELET COUNT 192 x10^3/uL (140-400); RED BLOOD COUNT 3.78 x10^6/uL (3.50-5.40); RED CELL DISTRIBUTION WIDTH 13.8 % (11.5-14.5); WHITE BLOOD COUNT 3.5 x10^3/uL (4.0-11.0)
[2021-02-12 07:17] LABS: CALCIUM 8.9 mg/dL (8.5-10.1); GFR 65.4; POTASSIUM 4.2 mmol/L (3.5-5.1)
[2021-02-12] MEDS ORDERED: FUROSEMIDE 40 MG TABLET PO PRN (11:00)
[2021-02-12] MEDS ORDERED: POTASSIUM CHLORIDE 20 MEQ TABLET.ER. PO PRN (11:00)
[2021-02-12] MEDS: SPIRONOLACTONE 25 MG TABLET PO SCH (12:00)
[2021-02-12 17:01] VITALS: BP 135/66
--- NOTE | 2021-02-12 17:18 | NUR ---
PATIENT IS 76 Y O FEMALE ARRIVED VIA EMS. PATIENT IS A/OX4, NICE AND PLEASANT UPON ASSESSMENT, PATIENT DENIED ANY DIZZINESS AT THIS TIME, DENIED ANY PAIN. PATIENT IS ORIENTED TO THE ROOM AND HOSPITAL POLICIES, BELONGINGS OBTAINED, PATIENT IS CURRENTLY IN A BED AWAKE EATING DINNER.
[2021-02-12] MEDS: CARVEDILOL 12.5 MG TABLET PO SCH (17:57)
[2021-02-12 20:22] VITALS: BP 99/64
[2021-02-12] MEDS ORDERED: ATORVASTATIN CALCIUM 20 MG TABLET PO SCH (21:00)
[2021-02-12] MEDS: SACUBITRIL/VALSARTAN 49/51MG TABLET. PO SCH (21:00)
[2021-02-12 22:50] VITALS: BP 151/84
--- NOTE | 2021-02-13 00:54 | HP ---
HISTORY OF PRESENT ILLNESS: A 76-year-old female with history of breast cancer, came in complaining of dizziness, lightheadedness. The patient notes that she became increasingly , somewhat short of breath with lightheadedness and the patient noted some of the symptoms resolved on its own. The patient denied nausea, vomiting, fever, chills, chest pain, although she has generalized weakness. The patient has a significant breast cancer and has been having problems recently with generalized weakness, poor appetite, weight loss as it were. The patient came in through the Emergency Room and was admitted for further evaluation of her lightheadedness and generalized weakness as noted. PAST MEDICAL AND SURGICAL HISTORY: The patient has had history of breast cancer, congestive heart failure, hypertension, pneumonia, cholecystectomy, tubal ligation and arthritis. SOCIAL HISTORY: The patient has a history of smoking. Denies alcohol or drug use. Full code. FAMILY HISTORY: Unremarkable. ALLERGIES: IBUPROFEN. HOME MEDICATIONS: Include that of Lipitor 40, carvedilol 12.5 mg b.i.d., Entresto 49/51, Aldactone 12.5, potassium chloride and furosemide 40 mg a day. REVIEW OF SYSTEMS: GENERAL: Lightheadedness, weakness, loss of appetite and weight loss overall. PHYSICAL EXAMINATION: GENERAL: This is a very pleasant lady, in moderate amount of distress. VITAL SIGNS: Blood pressure 143/73, respiratory rate 24, pulse 61, afebrile, room air oxygen saturation 97%. HEENT: The patient's head was atraumatic, normocephalic. Eyes: PERRLA without jaundice. Mouth and throat were normal. NECK: Supple. LUNGS: Diminished throughout, but basically clear. CARDIOVASCULAR: Regular sinus rhythm, S1, S2. ABDOMEN: Soft, nontender, no rebound or guarding. Positive bowel sounds, no hepatosplenomegaly noted. EXTREMITIES: No clubbing, cyanosis. Trace edema. NEUROLOGIC: The patient alert and oriented x3. LABORATORY DATA: Sodium 140, potassium 4.6, BUN and creatinine 17 and 1.1. White count approximately 4.4, hemoglobin 11 and hematocrit 36. Differential basically within range. Serology: COVID-19 negative. IMPRESSION AND PLAN: Therefore, lightheadedness, metastatic breast cancer, generalized weakness and anorexia. The patient will be admitted with IV fluids. Further evaluation of her lightheadedness with CT scan of the head and make further assessment at that time. JAVIER/SUELLEN/ANIYA DR: Rosie TID: [id number]
[2021-02-13 06:18] VITALS: BP 124/79
[2021-02-13 07:32] LABS: ALBUMIN 3.2 g/dL (3.4-5.0); ALBUMIN/GLOBULIN RATIO 0.9 (1.0-1.7); CALCIUM 8.9 mg/dL (8.5-10.1); GFR 65.4; TOTAL BILIRUBIN 0.5 mg/dL (0.2-1.0); TOTAL PROTEIN 6.6 g/dL (6.4-8.2)
[2021-02-13] MEDS: SPIRONOLACTONE 25 MG TABLET PO SCH (09:17)
[2021-02-13] MEDS: SACUBITRIL/VALSARTAN 49/51MG TABLET. PO SCH (09:18)
[2021-02-13 09:19] VITALS: BP 124/79
[2021-02-13] MEDS: CARVEDILOL 12.5 MG TABLET PO SCH (09:19)
--- NOTE | 2021-02-13 10:21 | RAD ---
PQRS Compliance Statement: One or more of the following individualized dose reduction techniques were utilized for this examinat ion: 1. Automated exposure control 2. Adjustment of the mA and/or kV according to patient size 3. Use of iterative reconstruction technique CT head without contrast 02/13/2021 9:02 AM INDICATION: Breast cancer with metastasis. Lightheadedness. COMPARISON: None available TECHNIQUE: Multiple axial CT images of the head were obtained from skull base through the vertex with out intravenous contrast. FINDINGS: Head: Ventricles, sulci and basal cisterns are within normal limits. Low-attenuation in the periventricular white matter is suggestive of chronic small vessel ischemic changes. There is no hydrocephalus. Velazquez -white matter differentiation is normal. There is no acute intracranial hemorrhage. There is no mass, mass effect or midline shift. Posterior fossa is normal in appearance. Mild dilatation of the sella turcica with suggestion of partially empty sella turcica. Visualized portions of the orbits are normal. Paranasal sinuses are well aerated. Mastoid air cells a re well aerated. Scalp and calvaria are normal. IMPRESSION: No acute intracranial hemorrhage. CT imaging of the brain is limited for evaluation of intracranial metastatic disease. Consideration m ay be given for MRI of the brain with and without contrast. If there is contraindication for MRI, CT head without contrast could be of benefit. There is mild expansion of the sella with empty sella turcica. This finding is indeterminate and furt her characterization with MRI brain with and without contrast, pituitary protocol could be beneficial . Electronically signed by: Malgorzata Whelan MD (02/13/2021 10:18 AM) [id number]
--- NOTE | 2021-02-13 10:37 | NUR ---
discharge note Pt discharged at 1038 via ambulation accompanied by family member. pt given written and verbal instructions with verbal statement of understanding received.
--- NOTE | 2021-02-14 13:31 | DS ---
DATE OF DISCHARGE: 02/13/2021 HOSPITAL COURSE: A 76-year-old female came in through the Emergency Room with increased lightheadedness and dizziness. The patient apparently was very unsteady, somewhat short of breath, but nothing dramatic. She has a history of breast cancer. The patient came in through the ER. She was admitted for further evaluation and treatment. The patient had good oxygenation on room air of 97-99%, blood pressure 130/84, respiratory rate 20, pulse 60. The patient made good progress during the rest of her hospitalization. Because of her dizziness, we did a CT. There were no signs of intracranial metastatic disease. The patient's CTA of the chest showed no clots; however, there were multiple bilateral lung masses consistent with metastatic disease, for which the patient was informed and will get in to see her oncologist down to as soon as possible. In any case, the patient made good progress during the rest of her hospitalization. Her x-rays from are not available, so we will monitor the patient carefully get her down to IMPRESSION: Respiratory distress secondary to breast cancer with numerous metastatic nodules to the lung, breast cancer, lightheadedness. The patient will be continued to be observed as an outpatient and we will follow her after she returns back from Oncology, for which she will have an outpatient. She was SARS negative. CATHY DR: Rosie TID: [id number]
== END 2021-02-13 11:11 | disposition home or self-care (01) | DRG 181 ==
LOC: ER 09:23 → 1 SOUTH 13:30
PROVIDERS: ADMIT Family Medicine; ATTEND Family Medicine
DX: C78.01 Secondary malignant neoplasm of right lung (principal); I50.42 Chronic combined systolic (congestive) and diastolic (congestive) heart failure; E44.0 Moderate protein-calorie malnutrition; C79.31 Secondary malignant neoplasm of brain; C78.02 Secondary malignant neoplasm of left lung; R06.03 Acute respiratory distress; R91.8 Other nonspecific abnormal finding of lung field; I11.0 Hypertensive heart disease with heart failure; C50.919 Malignant neoplasm of unspecified site of unspecified female breast; Z20.822 Contact with and (suspected) exposure to COVID-19; Z87.891 Personal history of nicotine dependence; Z90.49 Acquired absence of other specified parts of digestive tract; Z68.24 Body mass index [BMI] 24.0-24.9, adult
CPT/HCPCS: 36415; 70450; 71045; 71275; 80048; 80053; 81001; 83880; 84484; 85025; 87426; 93005; U0003; 99285-25

== ENCOUNTER 2021-02-19 08:58 | Emergency (ER) | payer MEDICARE ==
[~2021-02-19] VITALS: Ht 154.9 cm; Wt 57.2 kg
[~2021-02-19 08:58] MED LIST changes: +CRESTOR10 MG PO; +FURO40TA4 PO
--- NOTE | 2021-02-19 09:24 | EKG ---
[address] [address] Test Date: 2021-02-19 Test Time: 09:07:51 Pat Name: ANNAMARIA MARS Department: Room: Gender: F [employer]: : 1945 Requested By: OFE JARVIS Order Number: [id number] Reading MD: Measurements Intervals [place] Rate: 59 P: 45 MO: 134 QRS: -7 QRSD: 84 T: 116 QT: 462 QTc: 457 Interpretive Statements SINUS RHYTHM LEFTWARD AXIS T ABNORMALITY IN ANTERIOR LEADS ABNORMAL ECG RI6.02 No previous ECG available for comparison
--- NOTE | 2021-02-19 09:33 | PHYS DOC ---
Past History Past Medical History: Arthritis, Cancer, Gallstones, Hypertension, Pneumonia, Other Additional Past Medical Histor: breast cancer Past Surgical History: Cholecystectomy, Tubal ligation, Other Additional Past Surgical Histo: back surgery Smoking: Cigarettes, Less than 1pk/day Alcohol Use: None Drug Use: None General Adult EDM: Chief Complaint: WEAKNESS/GENERALIZED HPI: HPI: 76-year-old female presents from her primary care physician's office, Dr. Andres, with low blood pressure recovery generalized weakness, dizziness. The patient tells me she went to the doctor today when they took her blood pressure was 80s over 40s. The patient was feeling mildly dizzy and generally weak but no other significant symptoms. She has been feeling short of breath for the last several weeks since getting some kind of breast cancer injections. She states that she also has to be careful how much drinks because of the side effect on her heart. She denies fever or chills. She has no other specific complaints at this time. Review of Systems: Review of Systems: Constitutional: Denies fever or chills. Low blood pressure. Eyes: Denies change in visual acuity HENT: Denies nasal congestion or sore throat Respiratory: Shortness of breath Cardiovascular: Denies chest pain or edema GI: Denies abdominal pain, nausea, vomiting, bloody stools or diarrhea : Denies dysuria Musculoskeletal: Denies back pain or joint pain Integument: Denies rash Neurologic: Dizziness. Denies headache, focal weakness or sensory changes Endocrine: Denies polyuria or polydipsia Lymphatic: Denies swollen glands Psychiatric: Denies depression or anxiety Allergies: Allergies: Allergies Coded Allergies Type Severity Reaction Last Updated Verified ibuprofen Allergy Intermediate Swelling 02/11/21 Yes Physical Exam: PE: Constitutional: Well developed, well nourished, no acute distress, non-toxic appearance. [] HENT: Normocephalic, atraumatic, bilateral external ears normal, oropharynx moist, no oral exudates, nose normal. [] Eyes: PERRLA, EOMI, conjunctiva normal, no discharge. [] Neck: Normal range of motion, no tenderness, supple, no stridor. [] Cardiovascular: Heart rate 59, regular rhythm, no murmur [] Lungs & Thorax: Bilateral breath sounds clear to auscultation [] Abdomen: Bowel sounds normal, soft, no tenderness, no masses, no pulsatile masses. [] Skin: Warm, dry, no erythema, no rash. [] Back: No tenderness, no CVA tenderness. [] Extremities: No tenderness, no cyanosis, no clubbing, ROM intact, no edema. [] Neurologic: Alert and oriented X 3, normal motor function, normal sensory function, no focal deficits noted. [] Psychologic: Affect normal, judgement normal, mood normal. [] Current Patient Data: Vital Signs: Vital Signs Date Time Temp Pulse Resp B/P (MAP) Pulse Ox O2 Delivery O2 Flow Rate FiO2 02/19/21 09:11 97.7 61 18 107/55 (72) 97 Room Air EKG: EKG: Sinus rhythm, rate 59, leftward axis, no ST elevation or depression, inverted T waves V2 to V6. [] Radiology/Procedures: Radiology/Procedures: [] Impressions: EXAM: XR CHEST 1V 02/19/2021 9:40 AM CLINICAL INDICATION: Weakness COMPARISON: Chest radiograph and CT chest 02/11/2021 TECHNIQUE: AP upright view of the chest FINDINGS: The heart is normal in size. Multiple large bilateral pulmonary ma sses and nodules are unchanged. There is no new focal consolidation, pleural effusion, or pneumothorax. There are surgical clips in the right chest wall. IMPRESSION: Unchanged bilateral pulmonary masses/nodules. No definite new abnormality. Electronically signed by: Ольга Cordero MD (02/19/2021 10:41 AM) [id number] DICTATED AND SIGNED BY: ОЛЬГА CORDERO MD DATE: 02/19/21 1038 CC: OFE JARVIS DO; RC ANDRES MD ~MTH0 0 Heart Score: C/O Chest Pain: No Risk Factors: Risk Factors: DM, Current or recent (<one month) smoker, HTN, HLP, family history of CAD, obesity. Risk Scores: Score 0 - 3: 2.5% MACE over next 6 weeks - Discharge Home Score 4 - 6: 20.3% MACE over next 6 weeks - Admit for Clinical Observation Score 7 - 10: 72.7% MACE over next 6 weeks - Early Invasive Strategies Course & Med Decision Making: Course & Med Decision Making Pertinent Labs and Imaging studies reviewed. (See chart for details) The patient's labs are essentially unremarkable except for an elevated potassium of 5.5. She does not have peaked T waves on EKG. Her EKG is negative for acute findings. Her chest x-ray shows similar chronic findings to previous. See read for more details. Her troponin is within normal limits. I ordered 500 mL of normal saline. The patient is feeling well. She does not meet any admission criteria. She will discuss her potassium supplementation with her primary care physician. She is stable for discharge at this time. [] Dragon Disclaimer: Dragon Disclaimer: This electronic medical record was generated, in whole or in part, using a voice recognition dictation system. Departure Departure: Impression: Primary Impression: General weakness Disposition: HOME / SELF CARE / HOMELESS Condition: IMPROVED Referrals: RC ANDRES MD (PCP) Patient Instructions: Weakness, [id number] OFE JARVIS DO Feb 19, 2021 09:33
[2021-02-19 09:42] LABS: BASO % 1 % (0-3); EOS % 1 % (0-3); HEMATOCRIT 34.8 % (36.0-47.0); HEMOGLOBIN 11.2 g/dL (12.0-15.5); LYMPH # 0.6 x10^3/uL (1.0-4.8); LYMPH % 15 % (24-48); MEAN CORPUSCULAR HEMOGLOBIN 30 pg (25-35); MEAN CORPUSCULAR HGB CONC 32 g/dL (31-37); MEAN CORPUSCULAR VOLUME 94 fL (79-100); MONO # 0.5 x10^3/uL (0.0-1.1); MONO % 11 % (0-9); NEUT % 72 % (31-73); PLATELET COUNT 213 x10^3/uL (140-400); WHITE BLOOD COUNT 4.2 x10^3/uL (4.0-11.0)
[2021-02-19 09:53] LABS: CALCIUM 9.1 mg/dL (8.5-10.1); CREATININE 1.2 mg/dL (0.6-1.0)
[2021-02-19 09:58] LABS: ALBUMIN 3.6 g/dL (3.4-5.0); ALBUMIN/GLOBULIN RATIO 1.1 (1.0-1.7); TOTAL BILIRUBIN 0.8 mg/dL (0.2-1.0)
[2021-02-19 10:04] LABS: POTASSIUM 5.5 mmol/L (3.5-5.1)
--- NOTE | 2021-02-19 10:44 | RAD ---
EXAM: XR CHEST 1V 02/19/2021 9:40 AM CLINICAL INDICATION: Weakness COMPARISON: Chest radiograph and CT chest 02/11/2021 TECHNIQUE: AP upright view of the chest FINDINGS: The heart is normal in size. Multiple large bilateral pulmonary masses and nodules are unc hanged. There is no new focal consolidation, pleural effusion, or pneumothorax. There are surgical cl ips in the right chest wall. IMPRESSION: Unchanged bilateral pulmonary masses/nodules. No definite new abnormality. Electronically signed by: Ольга Cordero MD (02/19/2021 10:41 AM) [id number]
[2021-02-19 11:04] LABS: BACTERIA,URINE 0 /HPF (0-FEW); BILIRUBIN,URINE NEG (NEG); CLARITY,URINE CLEAR; COLOR,URINE YELLOW; GLUCOSE,URINE NEG (NEG); HYALINE CASTS, URINE MOD /HPF; NITRITE,URINE NEG (NEG); RBC,URINE RARE /HPF (0-2); SQUAMOUS EPITHELIAL CELL,UR OCC /LPF; UROBILINOGEN,URINE 0.2 mg/dL (0.2 mg/dL); WBC,URINE OCC /HPF (0-4)
[2021-02-19] MEDS ORDERED: IV NORMAL SALINE 500ML 500 ML IV ONE (11:45)
[2021-02-19 12:42] VITALS: BP 149/62
== END 2021-02-19 13:10 | disposition home or self-care (01) ==
LOC: ER 08:58
DX: R53.1 Weakness (principal); I10 Essential (primary) hypertension; F17.210 Nicotine dependence, cigarettes, uncomplicated; Z90.49 Acquired absence of other specified parts of digestive tract; Z98.51 Tubal ligation status; Z88.6 Allergy status to analgesic agent
CPT/HCPCS: 36415; 71045; 80053; 81001; 84484; 85025; 93005; 96360; 99285; J7040

== ENCOUNTER 2021-03-20 07:32 | Inpatient (IN) | payer MEDICARE ==
[~2021-03-20] VITALS: Ht 157.5 cm; Wt 50.5 kg
--- NOTE | 2021-03-20 07:49 | PHYS DOC ---
Past History Past Medical History: Arthritis, Cancer, Gallstones, Hypertension, Pneumonia, Other Additional Past Medical Histor: breast cancer Past Surgical History: Cholecystectomy, Tubal ligation, Other Additional Past Surgical Histo: back surgery Smoking: Cigarettes, Less than 1pk/day Alcohol Use: None Drug Use: None General Adult EDM: Chief Complaint: FATIGUE HPI: HPI: 76-year-old female presents via EMS after fall. Was going to the bathroom but then is not sure what happened. EMS reports family states the patient was on the toilet and then fell onto the floor. Unsure about loss of consciousness. The patient does not have any specific complaints of pain or injury. She was recently diagnosed with bone and brain cancer. Family told EMS that she has not been eating and drinking very well lately. Her initial blood pressure was low. No reported fever. Review of Systems: Review of Systems: Constitutional: Denies fever or chills Eyes: Denies change in visual acuity HENT: Denies nasal congestion or sore throat Respiratory: Denies cough or shortness of breath Cardiovascular: Denies chest pain or edema GI: Denies abdominal pain, nausea, vomiting, bloody stools or diarrhea : Denies dysuria Musculoskeletal: Denies back pain or joint pain Integument: Denies rash Neurologic: Syncope. Denies headache, focal weakness or sensory changes Endocrine: Denies polyuria or polydipsia Lymphatic: Denies swollen glands Psychiatric: Denies depression or anxiety Allergies: Allergies: Allergies Coded Allergies Type Severity Reaction Last Updated Verified ibuprofen Allergy Intermediate Swelling 02/11/21 Yes Physical Exam: PE: Constitutional: Well developed, well nourished, no acute distress, non-toxic appearance. [] HENT: Normocephalic, atraumatic, bilateral external ears normal, oropharynx moist, no oral exudates, nose normal. [] Eyes: PERRLA, EOMI, conjunctiva normal, no discharge. [] Neck: Normal range of motion, no tenderness, supple, no stridor. [] Cardiovascular: Heart rate regular rhythm, no murmur [] Lungs & Thorax: Bilateral breath sounds clear to auscultation [] Abdomen: Bowel sounds normal, soft, no tenderness, no masses, no pulsatile masses. [] Skin: Warm, dry, no erythema, no rash. [] Back: No tenderness, no CVA tenderness. [] Extremities: No tenderness, no cyanosis, no clubbing, ROM intact, no edema. [] Neurologic: Alert and oriented X 3, normal motor function, normal sensory function, no focal deficits noted. [] Psychologic: Affect normal, judgement normal, mood normal. [] EKG: EKG: Sinus rhythm, rate 75, normal axis, no ST elevation or depression, prolonged QTC 506. [] Radiology/Procedures: Radiology/Procedures: [] Impressions: Exam Date: 03/20/2021 7:[address] HEAD AND C-SPINE WO Indication: Reason: fall - toni rn will call when ready / Spl. Instructions: / History: . One or more of the following dose reduction techniques were utilized: *Automated exposure control (AEC) *Adjustment of mA and/or kV according to patient size *Use of iterative reconstruction technique *CT scan done according to ALARA, or ALARA/IMAGE GENTLY EXAMINATION: CT OF THE HEAD WITHOUT CONTRAST INDICATION: Trauma, head injury, headache; TECHNIQUE: Noncontrast helical axial CT images of the head were obtained. COMPARISON: February 13, 2021 FINDINGS: The ventricles and sulci are prominent consistent with cerebral volume loss. Patchy ill-defined low attenuation areas in the subcortical and periventricular white matter bilaterally are consistent with microvascular disease. There is no evidence of acute intracranial hemorrhage, extra-axial collection, mass effect, midline shift, or acute territorial infarct. No lesion of the skull base or the calvarium is seen. The visualized paranasal sinuses, mastoid air cells, and orbits are normal in appearance. IMPRESSION: No evidence for acute intracranial abnormality. Volume loss and microvascular disease. EXAMINATION: CT OF THE CERVICAL SPINE WITHOUT CONTRAST Clinical Indication: Cervical spine pain after trauma Technique: Thin cut helical axial CT images through the cervical spine were obtained without contrast on a multi-detector CT scanner. Source data was then reconstructed into sagittal and coronal planes. COMPARISON: CT angiogram of the chest from February 11, 2021 Findings: Alignment is maintained without spondylolisthesis. Vertebral body heights are maintained without acute fracture. Moderate multilevel degenerative changes are noted. No significant prevertebral soft tissue swelling is demonstrated. No severe osseous central canal stenosis is seen. Multiple subcentimeter nodules in the lung apices bilaterally consistent with previously diagnosed metastatic disease, seen on previous CT from January 2021. Thyroid gland appears heterogeneous, likely with multiple nodules. Impression: No evidence of acute cervical spine fracture or subluxation. Multiple nodules in the lung apices consistent with previously diagnosed metastatic disease. Electronically signed by: Carly Wick MD (03/20/2021 9:06 AM) [id number] DICTATED AND SIGNED BY: CARLY WICK MD DATE: 03/20/21 0859 CC: OFE JARVIS DO; RC ANDRES MD ~MTH0 0 Heart Score: C/O Chest Pain: N/A Risk Factors: Risk Factors: DM, Current or recent (<one month) smoker, HTN, HLP, family history of CAD, obesity. Risk Scores: Score 0 - 3: 2.5% MACE over next 6 weeks - Discharge Home Score 4 - 6: 20.3% MACE over next 6 weeks - Admit for Clinical Observation Score 7 - 10: 72.7% MACE over next 6 weeks - Early Invasive Strategies Course & Med Decision Making: Course & Med Decision Making Pertinent Labs and Imaging studies reviewed. (See chart for details) The patient's initial blood pressures of 87/55 with a MAP of 65. I have ordered basic labs and a liter of normal saline. The patient appears clinically dry. She is responding appropriately to all of my questions. She does not have any obvious injuries. CT of the head and cervical spine are pending. The patient's head and cervical spine CT are negative for acute findings. Labs are significant for slightly elevated white count of 12.5. She has a low hemoglobin and elevated creatinine but these are similar to previous in her chart. Her liver enzymes are elevated but this is not unexpected given her metastatic disease. The patient's urinalysis is negative for infection. I spoke with Dr. Andres and he would like to admit the patient to the hospital for further management of her fatigue and low blood pressure. The patient is in agreement with this plan. [] Dragon Disclaimer: Dragon Disclaimer: This electronic medical record was generated, in whole or in part, using a voice recognition dictation system. Departure Departure: Impression: Primary Impression: General weakness Additional Impression: Hypotension Disposition: ADMITTED INPATIENT Admitting Physician: Rc Andres Condition: STABLE Referrals: RC ANDRES MD (PCP) OFE JARVIS DO Mar 20, 2021 07:48
[2021-03-20 08:44] LABS: BASO % 0 % (0-3); EOS % 0 % (0-3); HEMATOCRIT 35.9 % (36.0-47.0); HEMOGLOBIN 11.6 g/dL (12.0-15.5); LYMPH # 0.4 x10^3/uL (1.0-4.8); LYMPH % 4 % (24-48); MEAN CORPUSCULAR HEMOGLOBIN 30 pg (25-35); MEAN CORPUSCULAR HGB CONC 32 g/dL (31-37); MEAN CORPUSCULAR VOLUME 92 fL (79-100); MONO # 0.5 x10^3/uL (0.0-1.1); MONO % 4 % (0-9); NEUT # 11.5 x10^3uL (1.8-7.7); NEUT % 92 % (31-73); PLATELET COUNT 111 x10^3/uL (140-400); RED BLOOD COUNT 3.89 x10^6/uL (3.50-5.40); RED CELL DISTRIBUTION WIDTH 14.1 % (11.5-14.5); WHITE BLOOD COUNT 12.5 x10^3/uL (4.0-11.0)
[2021-03-20 08:50] LABS: CALCIUM 8.5 mg/dL (8.5-10.1); CREATININE 1.4 mg/dL (0.6-1.0); GFR 44.4; POTASSIUM 4.4 mmol/L (3.5-5.1)
[2021-03-20 08:56] LABS: ALBUMIN 2.9 g/dL (3.4-5.0); TOTAL BILIRUBIN 0.7 mg/dL (0.2-1.0); TOTAL PROTEIN 5.8 g/dL (6.4-8.2)
--- NOTE | 2021-03-20 09:09 | RAD ---
Exam Date: 03/20/2021 7:[address] HEAD AND C-SPINE WO Indication: Reason: fall - toni rn will call when ready / Spl. Instructions: / History: . One or more of the following dose reduction techniques were utilized: *Automated exposure control (AEC) *Adjustment of mA and/or kV according to patient size *Use of iterative reconstruction technique *CT scan done according to ALARA, or ALARA/IMAGE GENTLY EXAMINATION: CT OF THE HEAD WITHOUT CONTRAST INDICATION: Trauma, head injury, headache; TECHNIQUE: Noncontrast helical axial CT images of the head were obtained. COMPARISON: February 13, 2021 FINDINGS: The ventricles and sulci are prominent consistent with cerebral volume loss. Patchy ill-defined low attenuation areas in the subcortical and periventricular white matter bilaterally are consistent with microvascular disease. There is no evidence of acute intracranial hemorrhage, extra-axial collecti on, mass effect, midline shift, or acute territorial infarct. No lesion of the skull base or the calv arium is seen. The visualized paranasal sinuses, mastoid air cells, and orbits are normal in appearan ce. IMPRESSION: No evidence for acute intracranial abnormality. Volume loss and microvascular disease. EXAMINATION: CT OF THE CERVICAL SPINE WITHOUT CONTRAST Clinical Indication: Cervical spine pain after trauma Technique: Thin cut helical axial CT images through the cervical spine were obtained without contrast on a multi-detector CT scanner. Source data was then reconstructed into sagittal and coronal planes. COMPARISON: CT angiogram of the chest from February 11, 2021 Findings: Alignment is maintained without spondylolisthesis. Vertebral body heights are maintained without acute fracture. Moderate multilevel degenerative change s are noted. No significant prevertebral soft tissue swelling is demonstrated. No severe osseous cent ral canal stenosis is seen. Multiple subcentimeter nodules in the lung apices bilaterally consistent with previously diagnosed me tastatic disease, seen on previous CT from January 2021. Thyroid gland appears heterogeneous, likely with multiple nodules. Impression: No evidence of acute cervical spine fracture or subluxation. Multiple nodules in the lung apices consistent with previously diagnosed metastatic disease. Electronically signed by: Rogers Wick MD (03/20/2021 9:06 AM) [id number]
[2021-03-20] MEDS ORDERED: IV NORMAL SALINE 1,000ML 1,000 ML IV ONE (10:15)
[2021-03-20] MEDS ORDERED: ONDANSETRON PF 4 MG/2 ML VIAL. IVP PRN (13:15)
[2021-03-20 13:42] LABS: BACTERIA,URINE 0 /HPF (0-FEW); BILIRUBIN,URINE NEG (NEG); CLARITY,URINE CLEAR; COLOR,URINE YELLOW; GLUCOSE,URINE NEG (NEG); NITRITE,URINE NEG (NEG); RBC,URINE 0 /HPF (0-2); SQUAMOUS EPITHELIAL CELL,UR OCC /LPF; UROBILINOGEN,URINE 0.2 mg/dL (0.2 mg/dL)
[2021-03-20 14:53] VITALS: BP 111/71
--- NOTE | 2021-03-20 17:48 | NUR ---
Pt arrived to unit @ 1515. Pt is lethargic but oriented. Able to follow commands and move all extremities spontaneously. Home meds reviewed with pts daughter. Shirt, bra, pants, and sweatshirt at bedside with pt. Purse and cell phone sent home with pts daughter. VSS. QUIROZ.
[2021-03-20 19:30] VITALS: BP 79/56
[2021-03-20 19:35] VITALS: BP 89/60
[2021-03-20] MEDS: DEXAMETHASONE 4 MG TABLET PO SCH (22:34)
[2021-03-21 00:34] VITALS: BP 119/75
--- NOTE | 2021-03-21 04:01 | EKG ---
[address] [address] Test Date: 2021-03-20 Test Time: 08:03:42 Pat Name: ANNAMARIA MARS Department: Room: 109 A Gender: F Panel Coverer: GEOFF : 1945 Requested By: OFE JARVIS Order Number: [id number] Reading MD: Erlin Ram Measurements Intervals [place] Rate: 75 P: 66 WA: 130 QRS: 39 QRSD: 82 T: 71 QT: 450 QTc: 506 Interpretive Statements SINUS RHYTHM LOW LIMB LEAD VOLTAGE PROLONGED QT Electronically Signed On 03-22-2021 13:33:37 CDT by Erlin Ram
--- NOTE | 2021-03-21 05:59 | NUR ---
Pt ambulates with standby assistance. She did not remember to use call light for help all night. She attempted to get up from bed alone; bed alarm in use. Pt had liquid stool x1. She was incontinent in bed and while standing. Pt later moans when cold or uncomfortable; does not use call light. Asked pt about medication use at home and for pain. Pt denies medication use at home and refused offer to ask physician for pain medication. After putting blankets back on pt she falls asleep and stops moaning. Will continue to monitor.
[2021-03-21 06:15] VITALS: BP 83/57
[2021-03-21] MEDS: DEXAMETHASONE 4 MG TABLET PO SCH ×2 (07:51→21:00)
[2021-03-21] MEDS: IV NORMAL SALINE 1,000ML 1,000 ML IV SCH (10:59)
[2021-03-21 11:04] VITALS: BP 102/72
[2021-03-21] MEDS: MORPHINE SULFATE 2 MG/ML DISP.SYRIN. IV PRN ×2 (11:43→22:25)
--- NOTE | 2021-03-21 13:33 | NUR ---
Pt password created by family. Password: [email or web address].
--- NOTE | 2021-03-21 17:26 | HP ---
DATE OF SERVICE: 03/21/2021 ADMIT DATE: 03/20/2021 HISTORY OF PRESENT ILLNESS: A 76-year-old female who has unfortunately breast cancer with metastatic disease to her bones and to her lungs. She had been undergoing therapy down at ; however, that has not been very successful. The patient has deteriorated dramatically here in the last few days, unable to eat or drink. The patient was admitted for dehydration, fluids and arrangement with family about continued care. PAST MEDICAL HISTORY: As noted, breast cancer. She also has a history of CHF, hypertension, abdominal surgery, cholecystectomy, tubal ligation, arthritis. Smoking cessation, smoking exposure, cancer. Vaccination up to date. FAMILY HISTORY: Unremarkable. ALLERGIES: IBUPROFEN. SOCIAL HISTORY: Had about 20- to 61-[id number] history of smoking, has not smoked for 10 years. Denies alcohol or drug use and is a DNR. REVIEW OF SYSTEMS: The patient is not able to give much of a history. She says she does not hurt anywhere, but she is markedly emaciated. PHYSICAL EXAMINATION: GENERAL: This is a very pleasant patient who is markedly emaciated and sunken in her face due to dehydration. VITAL SIGNS: Blood pressure 89/50, respiratory rate 14, pulse 65, afebrile and 98 on room air. HEENT: The head outside of being dehydrated is unremarkable. Lips were dry, tongue dry. NECK: Supple. LUNGS: Diminished, but clear. CARDIOVASCULAR: Stable. Regular sinus rhythm, S1, S2, without murmur, rub, thrill, or extra heart sound. ABDOMEN: Soft, nontender, no rebound or guarding. Positive bowel sounds, no hepatosplenomegaly was noted. EXTREMITIES: No clubbing, cyanosis, nor edema. Marked atrophy to the musculoskeletal system and dehydration with tanning to the skin. IMPRESSION: Metastatic breast cancer to the lung and to bone, dehydration, emaciation, elevated liver enzymes, severe protein malnutrition, acute on top of chronic renal failure stage IIIA. The patient will be hydrated and appropriate care to be given as indicated. JAVIER/EDGAR CRANE: Rosie TID: [id number]
--- NOTE | 2021-03-21 17:48 | NUR ---
Spoke with Dr. Saldivar this AM. 1 visitor allowed for pt due to pts declining condition. Routine vitals and tele monitoring discontinued. Morphine ordered PRN for pain. NS @ 125 mL/hr started. Pts daughter and son able to visit during the day. Pt resting comfortably in bed. x1 BM[facility]
[2021-03-21 22:46] VITALS: BP 134/71
[2021-03-22] MEDS: MORPHINE SULFATE 2 MG/ML DISP.SYRIN. IV PRN ×6 (00:17→09:44)
[2021-03-22] MEDS: IV NORMAL SALINE 1,000ML 1,000 ML IV SCH ×4 (01:29→18:45)
--- NOTE | 2021-03-22 06:28 | NUR ---
Pt has been getting morphine doses every 2 hours. She has slept off and on and moaning while awake. Pt makes grunting noises to indicate yes or no at times. Sometimes she does not answer questions. Pt denies pain and declines food or water. She does not answer to other questions of need: toileting, brief changes, position changes or temperature discomfort. Warm blankets were placed during the night. A radio was brought in for comfort. Nursing staff has sat with pt for short periods of time to offer comfort. Will continue to monitor.
[2021-03-22] MEDS: DEXAMETHASONE 4 MG TABLET PO SCH (09:00)
[2021-03-22] MEDS: MORPHINE SULFATE 4 MG/ML DISP.SYRIN. IV PRN ×2 (11:11→16:02)
[2021-03-22] MEDS: MORPHINE SULFATE 30 MG/30 ML 30 ML IV PRN ×2 (20:09→21:32)
--- NOTE | 2021-03-22 23:46 | PN ---
SUBJECTIVE: The patient unfortunately have been treated for breast cancer, lung cancer with mets to the bones. The patient is very sick, very much in pain. I placed her on morphine drip. The patient is a DNR. She is on hospice, were not providing her with vital signs presently, although the lungs were diminished. The patient is moaning. She has very little in the way of response. IMPRESSION: Lung cancer, breast cancer with mets. PLAN: Continue to make the patient as comfortable as possible. CHULA DR: Rosie TID: [id number]
[2021-03-23 00:34] VITALS: BP 68/46
--- NOTE | 2021-03-23 01:58 | NUR ---
PT noted with increased work of breathing. O2 via nasal cannula placed with 2L at 0000. PT noted with gurgling. Intermittent suctioning started at 0030. PT noted on telemetry throughout night to jump from kristin to tachycardic. Telemetry alarmed with extreme kristin. PT assessed and noted with agonal breathing. Telemetry then noted with asystole. Two-nurse verification of noted of this RN and Shawn Carvajal RN (bull gang supervisor). Time of noted at 0144. Family notified at [address] Saldivar notified at 0151 by bull gang supervisor.
--- NOTE | 2021-03-23 14:18 | NUR ---
Pt discharged to [facility] @ 2359.
--- NOTE | 2021-03-23 14:31 | RAD ---
EXAM: XR CHEST 1V 03/20/2021 8:16 AM CLINICAL INDICATION: Syncope COMPARISON: Chest radiograph 02/19/2021 TECHNIQUE: AP view of the chest FINDINGS: Multiple bilateral pulmonary nodules and masses are redemonstrated. The largest on the lef t is about 3.4 cm and on the right at least 2.2 cm. This is similar in appearance to 02/19/2021. No ne w consolidation, pleural effusion, or pneumothorax. The heart is normal in size. There is no acute os seous abnormality. Surgical clips are in the right chest wall. IMPRESSION: Unchanged multiple bilateral pulmonary nodules and masses suspicious for metastatic dise ase. Electronically signed by: Ольга Cordero MD (03/23/2021 2:28 PM) [id number]
--- NOTE | 2021-03-27 09:19 | DS ---
DATE OF DISCHARGE: 03/23/2021 HOSPITAL COURSE: A 76-year-old female with a long history of breast cancer, lung cancer and metastatic disease. The patient came increasingly weakened and had undergone therapy down to [facility] that was unsuccessful. The patient came in, she was unable to eat or drink for the last few days, became markedly dehydrated. The patient was admitted, hydrated and quiet and placed on a morphine drip because of increased pain and breathing difficulties. Family decided to place her on hospice. She was placed on hospice and the patient quietly and peacefully. The family was consoled and the patient's body released to home. IMPRESSION: Breast cancer with metastatic disease, lung cancer with metastatic disease. The patient was . JAVIER/CHASTITY DR: Rosie TID: [id number]
== END 2021-03-23 14:15 | DRG 597 ==
LOC: ER 07:32 → 1 SOUTH 13:14
PROVIDERS: ADMIT Family Medicine; ATTEND Family Medicine
DX: C50.919 Malignant neoplasm of unspecified site of unspecified female breast (principal); E43 Unspecified severe protein-calorie malnutrition; C79.51 Secondary malignant neoplasm of bone; C78.00 Secondary malignant neoplasm of unspecified lung; I13.0 Hypertensive heart and chronic kidney disease with heart failure and stage 1 through stage 4 chronic kidney disease, or unspecified chronic kidney disease; E86.0 Dehydration; I50.9 Heart failure, unspecified; M19.90 Unspecified osteoarthritis, unspecified site; I95.9 Hypotension, unspecified; R74.8 Abnormal levels of other serum enzymes; N18.9 Chronic kidney disease, unspecified; Z51.5 Encounter for palliative care; Z66 Do not resuscitate; Z87.891 Personal history of nicotine dependence; Z87.01 Personal history of pneumonia (recurrent); Z90.49 Acquired absence of other specified parts of digestive tract; Z98.51 Tubal ligation status; Z88.6 Allergy status to analgesic agent; Z20.822 Contact with and (suspected) exposure to COVID-19; Z68.20 Body mass index [BMI] 20.0-20.9, adult
CPT/HCPCS: 36415; 70450; 71045; 72125; 80053; 81001; 85025; 87086; 87426; 93005; 96360; 96361; J2270; J8540; P9612; U0003; 99285-25; J7030